=== PATIENT | male | born 1980 | race Caucasian/White ===

== ENCOUNTER → 2021-08-05 08:14 | Outpatient (CLI) | payer OTHER, SELFPAY ==
--- NOTE | 2021-08-05 08:35 | CT_ITS ---
PROCEDURE: CT ABDOMEN PELVIS WO CON CLINICAL INDICATION: HEMATURIA Hematuria, right flank pain COMPARISON: No exams were available for comparison TECHNIQUE: Axial images obtained with sagittal and coronal reformats. All CT scans at the facility use one or more dose reduction, viz: automated exposure control, ma/kV adjustment per patient size (including targeted exams where dose is matched to indication, i.e. head), or iterative reconstruction technique. FINDINGS: LOWER THORAX: No acute finding ABDOMEN & PELVIS: The liver, gallbladder, spleen, adrenal glands, pancreas, and kidneys have an unremarkable unenhanced appearance. No renal or ureteral calculi. No hydronephrosis. Unremarkable appearing urinary bladder. No intestinal obstruction or free air. There is a mild amount of retained colonic feces. No evidence of appendicitis or diverticulitis. No acute bony anomalies. No adenopathy. There is a well-circumscribed lucent lesion involving the left ilium inferiorly with a sclerotic margin measuring 10 mm and may be due to a benign cortical defect. A sclerotic focus is present in the right super acetabular region suggesting a bone island. IMPRESSION: No acute finding Dictated by: Juan Paniagua MD 08/06/2021 11:31 Juan Paniagua MD in [place] 08/06/2021 11:31
== END ==
PROVIDERS: PCP Family Medicine; Visit Provider Family Medicine
DX: R31.9 Hematuria, unspecified (principal)
CPT/HCPCS: 74176

== ENCOUNTER → 2023-02-09 14:34 | Outpatient (CLI) | payer OTHER, SELFPAY | PROVIDERS: PCP Family Medicine; Visit Provider Physician Assistant | DX: R00.2 Palpitations (principal) | CPT/HCPCS: 93225; 93226 ==

== ENCOUNTER 2024-03-30 18:00 | Outpatient (CLI) | payer OTHER, SELFPAY | END 2024-03-30 23:59 | disposition home or self-care (01) | LOC: LAB.DROPOF 03-31 08:43 | PROVIDERS: PCP Student in an Organized Health Care Education/Training Program; Visit Provider Student in an Organized Health Care Education/Training Program | DX: R05.9 Cough, unspecified (principal); R09.82 Postnasal drip; J02.9 Acute pharyngitis, unspecified; R50.9 Fever, unspecified | CPT/HCPCS: 87635 ==

== ENCOUNTER 2025-05-22 09:48 | Emergency (ER) | payer MEDICAID, SELFPAY ==
--- NOTE | 2025-05-22 09:52 | ED_ITS ---
Discharge Plan Disposition Patient Disposition: Home, Self-Care Condition: Good Prescriptions Prescriptions: New ondansetron 4 mg tablet,disintegrating 4 mg PO Q6HP PRN (Reason: nausea and vomiting) Qty: 12 0RF No Action metoprolol succinate 25 mg tablet extended release 24 hr PO Patient Comments: TAKE ONE TABLET BY MOUTH EVERY DAY azithromycin [Zithromax Z-Brennan] 250 mg tablet See Rx Instructions PO .COMPLEX Qty: 6 0RF Rx Instructions: For 250 mg dose pack: take 500 mg today (day 1), then 250 mg for 4 days (days 2-5) PO methylprednisolone 4 mg tablets,dose pack See Rx Instructions PO PER PKG DIR Qty: 21 0RF Rx Instructions: PO PER PKG DIR [id number] [Bromfed DM] 2-30-10 mg/5 mL syrup 5 ml PO Q4-6H PRN (Reason: cold symptoms) Qty: 118 0RF Referrals Follow up/Referrals: Shamar Baron MD [Primary Care Provider, Medical] - See instructions Activity Restrictions/Add. Instructions Additional Instructions/Restrictions: Stay well-hydrated. Please follow up with your primary care provider in 2-3 days. Please return to ED if your symptoms worsen, change in location, change in severity, new symptoms develop or if you become concerned for your health. Clinical Impressions Clinical Impression: Gastroenteritis Instructions Patient Instructions: DI for Diarrhea and Traveler's Diarrhea -- Adult, DI for Diarrhea and Traveler's Diarrhea -- Child, DI for Nausea -- Adult, DI for Nausea -- Child Print Language Print Language: [place] Discharge ED Provider: Walt Mead Adult HPI General Chief complaint: Nausea/Vomiting/Diarrhea Stated complaint: Dehydrated, fever, D/V Time Seen by Provider: 05/22/25 09:52 History of Present Illness HPI narrative: Patient is a 45-year-old male with no significant past medical history who presents today due to concerns for diarrhea and vomiting. He reports that Tuesday afternoon he began to have nonbloody diarrhea that has been persistent with multiple bouts of daily. Then yesterday, began to have few episodes of nonbloody vomiting, only after attempting to eat. He reports that he has been eating and drinking less than usual because of this. He reports a fever with a Tmax of 101 yesterday, appropriately treated with Tylenol and Motrin. He denies any abdominal pain or flank pain. Denies any burning with urination or blood in the urine. No abdominal surgical history. No recent travel. No rash. No known sick contacts., Related Data Home Medications ?Medication ?Instructions ?Recorded ?Confirmed metoprolol succinate 25 mg mg PO 03/30/24 03/30/24 tablet,extended release 24 hr Previous Rx's ?Medication ?Instructions ?Recorded azithromycin 250 mg tablet See Rx Instructions PO .COM PLEX #6 03/30/24 (Zithromax Z-Brennan) tabs ssmxxwqvnxdkljq-fuvcaeggwicuafe-FF 5 ml PO Q4-6H PRN c old symptoms 03/30/24 2 mg-30 mg-10 mg/5 mL oral syrup #118 mL (Bromfed DM) methylprednisolone 4 mg tablets in See Rx Instructions PO PER PKG DIR 03/30/24 a dose pack #21 tabs ondansetron 4 mg disintegrating 4 mg PO Q6HP PRN nause a and 05/22/25 tablet vomiting #12 tabs Allergies Allergy/AdvReac Type Severity Reaction Status Date / Time Penicillins Allergy Verified 03/30/24 15:19 [facility] Disclaimer: The information contained in this section may have been updated after the patient was seen, as this information can be updated by other users. Medical History Hypertension Surgical History No significant past surgical history Family History Other No significant family history Social History Smoking Status: Never smoker alcohol intake: current alcohol intake frequency: a few times a week current occupational status: employed Travel in the last 8 weeks?: None caffeine: No Have you lived/traveled outside [place] in past 30 days?: No Contact w/someone who lives/traveled outside [place] past 30 days?: No Exposure to someone with infectious disease in past 14 days?: No Do you have a fever (greater than 100.4 F or 38 C)?: No Have you tested positive for COVID-19?: No Exposed to someone with COVID-19 in past 14 days?: No Do you have a sore throat?: No Do you have a cough?: No Do you have any weakness?: No Do you have any diarrhea?: No Are you experiencing any unusual bleeding?: No Do you have any muscle aches/pain?: No Do you have any abdominal pain?: No Are you experiencing loss of taste or smell?: No ROS Obtained: Yes All systems reviewed & no additional complaints except as documented Physical Exam General General appearance: alert and in no apparent distress Head Head exam: atraumatic and normocephalic Eye Eye exam: Present PERRL and EOMI ENT ENT exam: Present normal oropharynx Neck Neck exam: Present full ROM and trachea midline Chest Chest inspection: Present symmetric chest wall rise Respiratory Respiratory exam: Present normal lung sounds bilaterally; Absent stridor Cardiovascular Cardiovascular exam: Present regular rate and normal rhythm Abdominal Exam Abdominal exam: Present soft; Absent distention or tenderness Extremities Exam Extremities exam: Present full ROM Neurological Exam Neurological exam: Present alert and oriented X3 Psychiatric Psychiatric exam: Present normal mood Skin Skin exam: Present warm and dry Medical Decision Making Medical Records Screening: Per USPSTF and CDC recommendations, given the prevalence of disease in our region, it is our hospital?s policy to screen for HIV and viral Hepatitis for all patients aged 18 and over and those with ongoing risk factors. Rafael Inquiry Pt receiving controlled substance: No Vital Signs: 05/22/25 09:54 05/22/25 11:12 05/22/25 12:58 Temperature 98.1 F Temperature Source Oral Pulse Rate 75 74 Pulse Rate [Right Radial] 89 Respiratory Rate 15 16 Blood Pressure 110/73 116/65 Blood Pressure [Right Arm] 130/84 Blood Pressure Mean [Right Arm] 99 Blood Pressure Source Blood Pressure Source [Right Arm] Automatic Cuff Blood Pressure Position Blood Pressure Position [Right Arm] Sitting 02 Sat by Pulse Oximetry 98 98 97 Oxygen Delivery Method Room Air Room Air 05/22/25 13:29 Temperature 98 F Temperature Source Oral Pulse Rate 81 Pulse Rate [Right Radial] Respiratory Rate 16 Blood Pressure 110/74 Blood Pressure [Right Arm] Blood Pressure Mean [Right Arm] Blood Pressure Source Automatic Cuff Blood Pressure Source [Right Arm] Blood Pressure Position Sitting Blood Pressure Position [Right Arm] 02 Sat by Pulse Oximetry Oxygen Delivery Method Room Air Lab Data Lab Results 05/22/25 10:32: WBC 6.7, RBC 5.28, Hgb 15.3, Hct 45.3, MCV 85.8, MCH 29.0, MCHC 33.8, RDW 12.0, Plt Count 363, MPV 9.6, Neut % (Auto) 61.1, Lymph % (Auto) 18.4, [place] % (Auto) 16.3 H, Eos % (Auto) 3.3, Baso % (Auto) 0.6, Neut # (Auto) 4.1, Lymph # (Auto) 1.2, [place] # (Auto) 1.1 H, Eos # (Auto) 0.2, Baso # (Auto) 0.0, S odium 135 L, Potassium 3.9, Chloride 99, Carbon Dioxide 28, Anion Gap 11.9, BUN 9, Creatinine 0.90, Estimated Creat Clear 149, Estimated GFR 92, Est GFR ( Amer) 111, Glucose 98, Calcium 8.9, Magnesium 2.0, Total Bilirubin 0.5, AST 29, ALT 33, Alkaline Phosphatase 65, Total Protein 7.2, Albumin 4.1, Globulin 3.1, Albumin/Globulin Ratio 1.3, HCV Ab JEANETTE w/Rflx PCR Qn Negative, HIV Ag/Ab Combo Qual Negative 05/22/25 10:32 05/22/25 10:32 Orders (Tests/Meds): ED MEDICATIONS Discontinued Medications Generic Name Dose Route Start Last Admin Trade Name Freq PRN Reason Stop Dose Admin Lactated Ringer's 1,000 mls @ 999 mls/hr 05/22/25 10:11 05/22/25 10:15 Lactated Ringer's 1000 Ml Bag IV 05/22/25 11:11 999 mls/hr .Q1H1M ONE Administration Ondansetron HCl 4 mg 05/22/25 10:11 05/22/25 10:15 Ondansetron 4mg/2ml Vial IV 05/22/25 10:12 4 mg ONCE ONE Administration ORDERS Category Date Time Status CBC w/Auto Diff [Complete Blood Count Auto Diff] Stat Lab 05/22/25 10:32 Completed CMP [Comprehensive Metabolic Panel] Stat Lab 05/22/25 10:32 Completed HIV Combo Stat Lab 05/22/25 10:32 Completed Hepatitis C Ab Qual. W/ RFX Stat Lab 05/22/25 10:32 Completed MAG [Magnesium] Stat Lab 05/22/25 10:32 Completed Medical Decision Narrative: In summary, this 45-year-old male presents to the emergency department today with diarrhea. On initial evaluation patient is afebrile, hemodynamically stable and in no acute distress. On exam, is warm and well-perfused. Does have slightly dry mucous membranes, and reports subjectively decreased urine output in conjunction with his nonbloody vomiting and nonbloody diarrhea. Most likely this is a viral gastroenteritis process especially given his reassuring abdominal exam which is soft and nontender nondistended. Additionally he has not had any abdominal surgical histories. Low suspicion for acute intra- abdominal process consider cross-sectional imaging but deferred given reassuring clinical exam and history.. Differential diagnosis includes but is not limited to viral gastroenteritis, KARINE, electrolyte derangement. Based on these concerns, I ordered CBC CMP magnesium. Patient received 1 L LR, Zofran for treatment. Labs personally reviewed demonstrate no KARINE no electrolyte derangement no leukocytosis no evidence of anemia. On reassessment, patient reports complete resolution of symptoms he is able to tolerate good oral intake here. Repeat abdominal exam is reassuring. Will send home Zofran and strict return precautions for likely gastroenteritis. At this time it was felt that the patient was safe to be discharged home. The patient was in agreement with this plan. The patient was given strict return precautions prior to being discharged from the emergency department. Critical Care Critical Care Time Critical Care Time: No
[2025-05-22 09:54] VITALS: BP 130/84; PULSE 89; RESP 15; TEMP 36.7; O2SAT 98; BMI 29.8
[2025-05-22] MEDS: LACTATED RINGERS 1000ML 1,000 ML 999 ML IV (10:15)
[2025-05-22] MEDS: ONDANSETRON 4MG/2ML VIAL 4 MG IV (10:15)
[2025-05-22 10:42] LABS: Hematocrit 45.3 % (42.0-52.0); Hemoglobin 15.3 g/dL (14.1-18.0); Immature Granulocytes % 0.3 %; Mean Corpuscular HGB Conc 33.8 g/dL (31.8-35.4); Mean Corpuscular Hemoglobin 29.0 pg (27.0-31.2); Mean Corpuscular Volume 85.8 fl (80-94); Nucleated Red Blood Cells % 0 %; Platelet Count 363 K/mm3 (142-424); Red Blood Count 5.28 M/mm3 (4.60-6.20); Red Cell Distribution Width-SD 37.7 fL; White Blood Count 6.7 K/mm3 (4.8-10.8)
[2025-05-22 11:02] LABS: Alanine Aminotransferase 33 U/L (12-78); Albumin Level 4.1 g/dl (3.5-5.0); Albumin/Globulin Ratio 1.3 (1.1-1.8); Alkaline Phosphatase 65 U/L (38-126); Anion Gap 11.9 mEq/L (5-15); Aspartate Amino Transferase 29 U/L (17-59); Bilirubin,Total 0.5 mg/dl (0.2-1.3); Blood Urea Nitrogen 9 mg/dl (9-20); Calcium 8.9 mg/dl (8.4-10.2); Carbon Dioxide 28 mmol/L (22.0-30.0); Chloride 99 mmol/L (98-107); Creatinine Clearance Estimated 149 mL/min (50-200); Creatinine,Serum 0.90 mg/dl (0.66-1.25); Estimated Glomerular Filt Rate 92 ml/min (>60); GFR (African American) 111 ML/MIN (>60); Globulin 3.1 g/dL (1.3-3.2); Glucose 98 mg/dl (74-100); Magnesium 2.0 mg/dl (1.6-2.3); Potassium 3.9 mmoL/L (3.5-5.1); Sodium 135 mmol/L (136-145); Total Protein,Serum 7.2 g/dl (6.3-8.2)
[2025-05-22 11:12] VITALS: BP 110/73; PULSE 75; RESP 16; O2SAT 98
[2025-05-22 12:58] VITALS: BP 116/65; PULSE 74; O2SAT 97
[2025-05-22 13:01] LABS: Hepatitis C Ab Qual. W/ RFX NEGATIVE (Negative)
[2025-05-22 13:29] VITALS: BP 110/74; PULSE 81; RESP 16; TEMP 36.6; O2SAT 97
== END 2025-05-22 13:30 | disposition home or self-care (01) ==
PROVIDERS: Emergency Provider Emergency Medicine; PCP Family Medicine
DX: R11.2 Nausea with vomiting, unspecified (principal); K52.9 Noninfective gastroenteritis and colitis, unspecified
CPT/HCPCS: 80053; 83735; 85025; 86803; 87389; 96361; 96374; 99284; J2405; J7120